=== PATIENT | female | born 1950 | race Caucasian/White ===

== ENCOUNTER 2021-02-05 09:02 | Outpatient (CLI) | payer MEDICARE | END 2021-02-05 09:03 | disposition home or self-care (01) | LOC: CSHNM 09:02 | PROVIDERS: ATTEND Internal Medicine Hematology & Oncology | DX: C50.111 Malignant neoplasm of central portion of right female breast (principal); C79.51 Secondary malignant neoplasm of bone; J90 Pleural effusion, not elsewhere classified; R91.8 Other nonspecific abnormal finding of lung field | CPT/HCPCS: 71250; 74177; 78306; A9503 ==

== ENCOUNTER 2021-02-27 09:44 | Outpatient (CLI) | payer MEDICARE | END 2021-02-27 09:45 | disposition home or self-care (01) | LOC: CSHCT 09:44 | PROVIDERS: ATTEND Plastic Surgery | DX: C44.41 Basal cell carcinoma of skin of scalp and neck (principal); L04.0 Acute lymphadenitis of face, head and neck; C79.51 Secondary malignant neoplasm of bone | CPT/HCPCS: 70470; 70491; 82565 ==

== ENCOUNTER 2021-09-26 13:55 | Inpatient (IN) | payer MEDICARE ==
[2021-09-26] MEDS ORDERED: Morphine 4 MG/ML VIAL SLOW IVP PRN (19:45)
[2021-09-26] MEDS ORDERED: Lorazepam 2 MG/ML VIAL SLOW IVP PRN ×2 (19:45→19:47)
[2021-09-26] MEDS ORDERED: Bisacodyl 10 MG SUPP PR PRN (19:48)
[2021-09-26] MEDS ORDERED: Scopolamine 1.5 mg/72 hour Patch TOP SCH (20:00)
[2021-09-26 20:35] VITALS: BMI 34.7
[2021-09-26] MEDS: Morphine 4 MG/ML VIAL SLOW IVP SCH (23:59)
[2021-09-27] MEDS: Morphine 4 MG/ML VIAL SLOW IVP SCH ×12 (02:18→22:58)
[2021-09-27] MEDS: Lorazepam 2 MG/ML VIAL SLOW IVP SCH ×6 (04:07→20:42)
[2021-09-27] MEDS: Morphine 4 MG/ML VIAL SLOW IVP PRN (08:08)
[2021-09-27] MEDS ORDERED: Haloperidol Lactate 5 MG/ML VIAL SLOW IVP PRN (10:48)
[2021-09-27] MEDS ORDERED: Lorazepam 2 MG/ML VIAL SLOW IVP PRN (22:16)
[2021-09-28] MEDS: Morphine 4 MG/ML VIAL SLOW IVP SCH ×13 (00:51→23:28)
[2021-09-28] MEDS: Morphine 4 MG/ML VIAL SLOW IVP PRN ×5 (02:34→20:28)
[2021-09-28] MEDS: Lorazepam 2 MG/ML VIAL SLOW IVP SCH ×6 (03:49→20:07)
[2021-09-28 08:05] VITALS: BP 107/51; TEMP 103.1
== END 2021-09-28 23:55 | disposition expired | DRG 951 ==
LOC: CSHTELE 13:55
PROVIDERS: ADMIT Family Medicine; ATTEND Family Medicine
DX: Z51.5 Encounter for palliative care (principal); D61.818 Other pancytopenia; Z66 Do not resuscitate; I25.10 Atherosclerotic heart disease of native coronary artery without angina pectoris; I10 Essential (primary) hypertension; E11.9 Type 2 diabetes mellitus without complications; Z85.3 Personal history of malignant neoplasm of breast; Z85.830 Personal history of malignant neoplasm of bone; Z90.49 Acquired absence of other specified parts of digestive tract; Z90.89 Acquired absence of other organs; Z90.11 Acquired absence of right breast and nipple; Z95.2 Presence of prosthetic heart valve
CPT/HCPCS: J1630; J2060; J2270